=== PATIENT | male | born 1950 | race Caucasian/White ===

== ENCOUNTER 2016-09-24 12:43 | Day surgery (SDC) | payer OTHER ==
[2016-09-24] VITALS (8 sets, daily range): BP systolic 113–139; BP diastolic 57–77; PULSE 56–97; RESP 14–18; O2SAT 93–99
[~2016-09-24] VITALS: Ht 167.6 cm; Wt 70.3 kg
--- NOTE | 2016-09-24 08:23 | HP ---
[address] [address] HISTORY AND PHYSICAL PATIENT: JOVANI UMANZOR : 1950 MR#: [id number] ADMIT: 09/24/2016 JOB ID: [id number] CHIEF COMPLAINT: This 66-year-old male who was pulling on a wrench while working on his boat in [place] approximately 2-1/2 weeks ago sustaining an injury to his right little finger. The patient was pulling on a wrench and felt a pop in his right little finger and then pain in his palm. Clinically the patient has a rupture of the flexor digitorum profundus tendon to the right little finger from the level of the DIP joint that has retracted to the palm. PAST MEDICAL HISTORY: ALLERGIES: None. PRIOR SURGERIES: None. MEDICATIONS: No routine medications. SOCIAL HISTORY: The patient does not smoke or drink. He stays active and healthy. FAMILY HISTORY: Noncontributory. REVIEW OF SYSTEMS: HEENT: No blurring of vision. No decreased hearing. Respiratory: No shortness of breath. Cardiovascular: No chest pain. GI: No nausea or vomiting. : No dysuria. Musculoskeletal: Right little finger pain and decreased range of motion. Hematologic: No easy bleeding or bruising. Neuro: No headache or dizziness. PHYSICAL EXAMINATION: Well-developed, well-nourished 66-year-old male who appears to be active and healthy. HEENT: Within normal limits. Lungs: Clear to P and A. Heart: Regular rate and rhythm. Abdomen: Soft, nontender. and rectal: Deferred. Musculoskeletal: Right hand pulses are full. Sensory intact. The patient is able to flex the MCP and PIP joint but is not able to flex the DIP joint. Clinically this is consistent with a rupture of the flexor digitorum profundus tendon from the DIP joint level. He has pain in the palm and clinically it appears that the tendon has retracted into the palm. Neuro: Oriented x3. Cranial nerves 2-12 intact. X-RAYS: Possible small fracture at the tip of the right little finger volar aspect along the area of the flexor digitorum profundus tendon insertion. IMPRESSION: Flexor digitorum profundus tendon avulsion, right little finger distal interphalangeal joint. PLAN: The patient will be taken to the operating room to retrieve the flexor tendon in the palm and repair the tendon to its insertion. Will plan to do this on September 24, 2016. At that time, he will be just three weeks since his injury. The tendon should still be retrievable at three weeks' time for primary repair. The patient is aware of the risks for bleeding, infection, pain, and stiffness, possibility for damage to surrounding neurovascular structures and potential for re- rupture of the tendon. Surgical consent is signed.
[~2016-09-24 12:43] MED LIST: DOCO1CAP3 PO; GABA-502 PO; vitamin d3 PO
[2016-09-24] MEDS ORDERED: Propofol 10,000 mCg/mL 20 mL Inj ONE (12:44)
[2016-09-24] MEDS ORDERED: MetoCLOpramide 5 mg/mL 2 mL Inj ONE (12:44)
[2016-09-24] MEDS ORDERED: fentaNYL-PF 50 mCg/mL 2 mL Inj ONE (12:44)
[2016-09-24] MEDS ORDERED: Dexamethasone 4 mg/mL Inj ONE (12:44)
[2016-09-24] MEDS ORDERED: Ondansetron 2 mg/mL 2 mL Inj ONE (12:44)
[2016-09-24] MEDS ORDERED: EPHEDrine/NS 5 mg/mL 5 mL Syringe ONE (12:44)
[2016-09-24] MEDS ORDERED: Lactated Ringer's 1,000 ML IV ONE (13:00)
[2016-09-24] MEDS ORDERED: CeFAZolin 2 Gm/50 mL D5W Duplex Bag IV ONE (13:10)
[2016-09-24] MEDS ORDERED: Gentamicin 40 mg/mL 2 mL Inj IRRIGATION ONE (14:08)
[2016-09-24] MEDS ORDERED: Lactated Ringer's 500 ML IV PRN (14:22)
[2016-09-24] MEDS ORDERED: Lactated Ringer's 1,000 ML IV SCH (14:22)
--- NOTE | 2016-09-24 14:24 | PCM.HPANE ---
Patient Data Surgeon Admitting Provider: Attending Provider:Mike Jenkins MD Primary Care Physician:Benita Other Provider:Skye Rowley Anesthesia Reason for Visit Right Little Finger Tendon Rupture Ht/WT & BMI Height (Feet): 5 Height (Inches): 6 Weight (Kilograms): 70.3 Body Mass Index 24.00 Allergies Coded Allergies: No Known Allergies (Verified Allergy, Severe, 09/24/16) Past Anesthesia History Anesthesia History: Denies:: Abnormal Airway, Anesthesia Reactions, Difficult Intubation, Fam Anesthesia Reaction, Fam Malignant Hypertherm, Malignant Hyperthermia Diabetes History Hx Diabetes?: No MRSA MRSA: No Medications Home Meds Incl Beta Jackie: No Reported Medications Docosahexanoic Acid/Epa (Fish Oil Concentrate Softgel)1 Each Capsule1 Each PO DAILY 09/22/16 [vitamin d3] No Conflict Check10,000 Units PO DAILY 09/22/16 Gabapentin 300 Mg [id number] Mg PO TID Ref 0 09/22/16 Discontinued Reported Medications Gabapentin-Expunged Drug, Do Not Renew! (Neurontin-Expunged Drug, Do Not Renew!) 300 Mg [id number] Mg PO TID Ref 0 01/19/09 History History of ENT Problems?: Yes HEENT History: Positive for:: Hearing Problem Sinus Problem (nasal drip r/t allergies) TMJ (nightguard) Denies:: Abnormal Airway Cataracts Difficult Intubation Dysphagia Glaucoma Denture Type: None Teeth Condition: Within Normal Limits Hx of Heart Problems?: No Cardiovascular History: Denies:: AICD Abdominal Aortic Aneurism Atrial Fibrillation Cardiac Surgery Chest Pain Congestive Heart Failure Coronary Artery Disease Edema Heart Murmur Hypertension Irregular Heartbeat Pacemaker Peripheral Vascular Rheumatic Fever Thrombophlebitis Valvular Heart Disease Hx of Respiratory Problem?: Yes Respiratory History: Positive for:: Pneumonia (one time after surgery 8 years ago - hospitalized - sig event) Denies:: Asthma COPD Chest Surgery Cough Dyspnea Emphysema Hemoptysis Oxygen Administration Pulmonary Embolism Tuberculosis Use of C-PAP Machine (sleep study negative) Use of Inhalers / NEBS Hx Neurologic Problems?: No Neurological History: Denies:: Alzheimer's Disease CVA Dementia Dizziness Headaches Multiple Sclerosis Parkinson's Disease Peripheral Neuropathy Seizures TIA Hx of GI Problems?: Yes Gastrointestinal History: Denies:: Cirrhosis Diverticulitis Gall Bladder Disease Gastroesphageal Reflux Gastrointestinal Bleeding Heartburn Hepatitis Hiatal Hernia Liver Disease Rectal Bleeding Hx of Problems?: No Genitourinary History: Denies:: HX of Hemodialysis Kidney Stones Urinary Tract Infection HX of Peritoneal Dialysis: No Male Hx: Denies:: Prostate Problems Scrotal Mass Testicular Surgery Skin History: Denies:: History Skin Disorders? Pressure Ulcers Hx Musculoskeletal Problems?: Yes Musculoskeletal History: Positive for:: Musculoskeletal Trauma (right little finger current admission problem) Denies:: Back Injury Degenerative Joint Fibromyalgia Joint Replacement Myasthenia Gravis Osteoarthritis Rheumatoid Arthritis Systemic Lupus Hx of Psycho/Social Problems?: Yes Psycho Social History: Positive for:: Bipolar Disorder (pt states he takes gabapentin for this) Denies:: Anxiety Hx Depression Suicide Attempt Hx Surgeries?: Yes (Rotator cuff) Hx Any Other Health Problems?: Yes Other History: Denies:: Cancer Thyroid Disease History Blood Transfusions: Positive for:: Accept Blood Products? Denies:: Blood Transfusions Hx Diabetes: No Hx Alcohol Use: NoHx Substance Use: NoHave You Smoked inLast 12 mo: No Stop/Bang S-Snoring: Do You Snore Loudly: No T-Tired: feel tired, fatigued: No O-Obsered: Observed not breath: No P-Blood Pressure: treated: No B- Body Mass Index > 35 kg/m2: No A- Age over 50: Yes N- Neck Large Circumference: No G- Gender Male: Yes JORY Total Score: 2 Risk Assessment Category Category 1A: Patient has history of documented sleep apnea, and HAS NOT received any narcotic, sedative or anesthesia administration during this stay. Category 1B: Patient has history of documented sleep apnea, and HAS received any narcotic , sedative or anesthesia administration during this stay Category 2: Patient has SUSPECTED Obstructive Sleep Apnea, and HAS received any narcotic , sedative or anesthesia administration during this stay. Category 3: Patient has SUSPECTED Obstructive Sleep Apnea and HAS NOT received narcotic, sedative or anesthesia administration during this stay. Category 4: Outpatient in Procedural Areas with known sleep apnea or who screen positive for High Risk via the STOP/BANG questionnaire. Exam Exam Vital Signs Vital Signs Date Time Temp Pulse Resp B/P Pulse Ox O2 Delivery O2 Flow Rate FiO2 09/24/16 13:06 35.8 56 16 113/69 99 Room Air General Appearance: Alert, Oriented X3, Cooperative, No Acute Distress HEENT/AIRWAY: MP 2, Neck Movement (FROM), Mouth Opening (3 FBMO) Lungs: Clear to Auscultation, Normal Air Movement Heart: Exam Unremarkable, Regular Rate/Rhythm, No Murmurs/Rubs/Gallops Plan Impression Patient chart reviewed, patient interviewed and anesthestic plan with risks, benefits, and alternatives discussed, and informed consent obtained. NPO per Anesth. Guidelines: Yes ASA Physical Status: ASA2 Mod Systemic Disease Anesthetic Plan: GA Bene/Risks/Altern/Consents: Yes HP Complete Prior to Induction: Yes Waqar Owen MD Sep 24, 2016 13:23
[2016-09-24] MEDS ORDERED: HYDROmorphone 1 mg/mL Inj IVPUSH PRN (14:25)
[2016-09-24] MEDS ORDERED: Ondansetron 2 mg/mL 2 mL Inj IVPUSH PRN (14:25)
[2016-09-24] MEDS ORDERED: EPHEDrine Sulfate 50 mg/mL Inj IVPUSH PRN (14:25)
[2016-09-24] MEDS ORDERED: Phenylephrine 10,000 mCg/mL Inj IVPUSH PRN (14:25)
[2016-09-24] MEDS ORDERED: fentaNYL-PF 50 mCg/mL 2 mL Inj IVPUSH PRN (14:25)
[2016-09-24] MEDS ORDERED: Labetalol 5 mg/mL 4 mL Inj IV PRN (14:25)
[2016-09-24] MEDS ORDERED: Atropine 0.4 mg/mL Inj IVPUSH PRN (14:25)
[2016-09-24] MEDS ORDERED: Bupivacaine-MPF 0.5% 30 mL Inj INJ ONE (16:51)
[2016-09-24] MEDS ORDERED: oxyCODONE-Acetamin 5-325 mg Tablet PO PRN (17:40)
--- NOTE | 2016-09-26 09:24 | OP ---
[address] [address] OPERATIVE REPORT PATIENT: JOVANI UMANZOR : 1950 MR#: [id number] ADMIT: 09/24/2016 JOB ID: [id number] DATE OF SURGERY: 09/24/2016 PREOPERATIVE DIAGNOSIS(ES): Right little finger FDP tendon rupture, ICD 10 code S66.811A. POSTOPERATIVE DIAGNOSIS(ES): Right little finger FDP flexor tendon rupture in the mid palm and partial attenuation FDS flexor tendon in the mid palm to the right little finger, ICD 10 code S66.811A. PROCEDURE: Primary repair of right little finger flexor tendons in the palm, FDP tendon and portion of the FDS tendon. CPT code 96395, x2. SURGEON: Mike Jenkins MD CONTROL SYSTEMS SPECIALIST: None. ANESTHESIA: General. ESTIMATED BLOOD LOSS: Less than 5 mL. DRAINS: None. COMPLICATIONS: None. SPONGE AND NEEDLE COUNT: Correct. INDICATIONS: This 66-year-old male was grabbing very tightly on a wrench and pulled up three weeks ago while working in [place] on his boat, and felt a pop in his mid palmar area. Clinically, it appears that the patient probably had a rupture of the FDP tendon to the right little finger at the level of the distal phalanx. There did not appear to be any associated fractures. The patient had some weakness at the PIP joint but was able to flex the PIP joint some, and he had no flexion at the DIP joint. PROCEDURE IN DETAIL: Under adequate general anesthesia, a well-padded tourniquet was applied to the right arm. The right arm was prepped and draped in sterile fashion. After appropriate time-out was called, the arm was elevated, exsanguinated, tourniquet inflated to 250 mmHg. Initially, the incision was fashioned just at the very tip of the DIP joint, volar aspect. This was to determine if the FDP tendon was ruptured at that level or more proximally. Small incision was made in the FDP tendon, was noted to be intact at that level. I therefore opted to incise the patient at the level of the A1 yumiko in the palm and inspected from there. A Dianne zigzag incision was fashioned from the volar finger crease of the little finger palmar aspect. It was extended proximally. The FDP tendon was noted to be avulsed at that mid palmar area along the mid palmar crease. The FDS tendon was still partially intact and partially attenuated. The proximal portion of the FDP tendon had retracted proximally just to the level of the distal portion of the transverse carpal ligament. With the wrist flexed, I was able to milk that portion of the proximal FDP tendon into the palm. Care was taken to protect surrounding neurovascular structures as well as the flexor tendons to the ring finger. I then repaired the flexor digitorum profundus tendon to the little finger utilizing a grasping suture with 3-0 FiberWire. I placed a grasping suture over the proximal and distal aspects of the tendon. I then also placed a grasping suture of the attenuated FDS tendon utilizing 3-0 FiberWire. I then adjusted the tension on the FDP tendon repair, tied the suture. Care was taken not to overtighten the flexor digitorum profundus tendon. I then tied the flexor digitorum superficialis suture. The patient appeared to have normal cascade to the fingers. I was able to passively stretch the little finger without excessive tension on the repair. The wound was irrigated with antibiotic saline. Please note that I did not require release of any portion of the transverse carpal ligament since I was able to milk the flexor tendon out from underneath the edge of the ligament. The skin was then reapproximated with horizontal mattress sutures of 4-0 nylon. Xeroform dry sterile dressings were applied. The patient was placed in a bulky hand splint with the wrist in some flexion and the fingers in slight flexion. Padding was placed between all the fingers. I incorporated the long, ring and little fingers, and left the index finger and thumb out of the splint. The patient was taken to the recovery room in stable condition. Sponge and needle count correct. No complications. PLAN: The patient will be scheduled with hand therapy to begin flexor tendon protocol. I have discussed this with hand therapy, and will probably proceed with a modified Pimentel type of flexor tendon protocol. The patient is aware that at three weeks time he will have some increased inflammation around the tendon, he needs to be exceedingly cautious so as not to rupture the repair. The patient will be seen in the office in two weeks for suture removal.
== END 2016-09-24 23:59 | disposition home or self-care (01) ==
LOC: SAS 12:43
PROVIDERS: ATTEND Orthopaedic Surgery
DX: S66.116A Strain of flexor muscle, fascia and tendon of right little finger at wrist and hand level, initial encounter (principal); F31.9 Bipolar disorder, unspecified; X50.0XXA Overexertion from strenuous movement or load, initial encounter; Y93.9 Activity, unspecified; Y92.89 Other specified places as the place of occurrence of the external cause; Y99.8 Other external cause status
CPT/HCPCS: 26350; 76000; J0690; J1100; J1580; J1885; J2405; J2765; J3010; J7120